=== PATIENT | male | born 1945 | race Caucasian/White ===

== ENCOUNTER 2020-08-18 11:51 | Emergency (ER) | payer OTHER ==
[~2020-08-18] VITALS: Ht 180.3 cm; Wt 95.0 kg
[2020-08-18 11:52] VITALS: BP 184/75
[2020-08-18] MEDS ORDERED: IBUPROFEN 600 MG TABLET. PO ONE (12:15)
[2020-08-18] MEDS ORDERED: ACETAMINOPHEN 500 MG TABLET PO ONE (12:15)
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
[2020-08-18 14:25] LABS: BACTERIA,URINE 0 /HPF (0-FEW); BILIRUBIN,URINE NEG (NEG); CLARITY,URINE CLEAR; COLOR,URINE YELLOW; GLUCOSE,URINE NEG (NEG); NITRITE,URINE NEG (NEG); RBC,URINE 0 /HPF (0-2); UROBILINOGEN,URINE 0.2 mg/dL (0.2 mg/dL); WBC,URINE 0 /HPF (0-4)
== END 2020-08-18 13:56 | disposition home or self-care (01) ==
LOC: ER 11:51
DX: S40.011A Contusion of right shoulder, initial encounter (principal); V89.2XXA Person injured in unspecified motor-vehicle accident, traffic, initial encounter; Y93.I9 Activity, other involving external motion; Y92.89 Other specified places as the place of occurrence of the external cause; Y99.8 Other external cause status
CPT/HCPCS: 73030; 81001; 99284